=== PATIENT | female | born 1960 | race Caucasian/White ===

== ENCOUNTER 2025-02-10 10:56 | Emergency (ER) | payer OTHER ==
[~2025-02-10] VITALS: Ht 157.5 cm; Wt 63.0 kg
[2025-02-10] MEDS ORDERED: DAPAGLIFLOZIN5 MG PO (11:12)
[2025-02-10] MEDS ORDERED: ASPIRIN81 MG PO (11:13)
[2025-02-10] MEDS ORDERED: INSULIN GL300 UNIT/1 SQ (11:13)
[2025-02-10] MEDS ORDERED: ATORVASTATIN CA80 MG PO (11:13)
[2025-02-10] MEDS ORDERED: TRAZODONE HCL100 MG PO (11:14)
[2025-02-10] MEDS ORDERED: BUPRENO-NALOX1 EACH SL (11:14)
[2025-02-10] MEDS ORDERED: LORAZEPAM0.5 MG PO (11:14)
[2025-02-10] MEDS ORDERED: TIZANIDINE HCL4 MG PO (11:14)
[2025-02-10] MEDS ORDERED: ONDANSETRON 4 MG TAB ODT SL ONE (11:15)
[2025-02-10 11:16] VITALS: BP 135/58
[2025-02-10] MEDS ORDERED: ONDANSETRON ODT4 MG PO (11:16)
== END 2025-02-10 11:20 | disposition home or self-care (01) ==
LOC: ED 10:56
DX: E11.9 Type 2 diabetes mellitus without complications (principal)
CPT/HCPCS: 99283; A9270